=== PATIENT | male | born 1995 | race Caucasian/White ===

== ENCOUNTER 2019-10-31 10:17 | Emergency (ER) | payer BC ==
[2019-10-31 11:08] LABS: #Basophils 0.1 thou/uL (0.0-0.2); #Eosinphils 0.2 thou/uL (0.0-0.7); #Lymphocytes 3.2 thou/uL (1.20-3.40); #Monocytes 0.6 thou/uL (0.11-0.59); #Neutrophils 4.7 thou/uL (1.40-6.50); %Basophils 0.8 % (0.0-1.0); %Eosinophils 1.9 % (0.0-10.0); %Lymphocytes 36.8 % (21.0-51.0); %Monocytes 6.4 % (0.0-10.0); %Neutrophils 54.2 % (42.0-75.0); Hemoglobin 15.2 g/dL (14.0-18.0); Mean Corpuscular HGB CONC 35.2 g/dL (32.0-36.0); Mean Corpuscular Hemoglobin 29.9 pg (27.0-31.0); Mean Corpuscular Volume 84.8 fL (78.0-98.0); Mean Platelet Volume 8.6 fL (7.4-10.4); Platelet Count 273 thou/uL (130-400); RBC Distribution Width 11.4 % (11.5-14.5); Red Blood Cell (RBC) Count 5.09 mill/uL (4.70-6.10); White Blood Cell (WBC) Count 8.7 thou/uL (4.8-10.8)
[2019-10-31 11:26] LABS: ALT (SGPT) 28 U/L (8-55); AST (SGOT) 26 U/L (5-34); Alkaline Phosphatase 65 U/L (40-110); Anion Gap 12 mmol/L (10-20); BUN (Urea Nitrogen) 15 mg/dL (8.9-20.6); Bilirubin, Total 0.7 mg/dL (0.2-1.2); Calc. Creatinine Clearance 0 mL/min (70-130); Calcium 9.7 mg/dL (7.8-10.44); Carbon Dioxide 26 mmol/L (22-29); Chloride 104 mmol/L (98-107); Estimated GFR-MDRD 88; Globulin 2.6 g/dL (2.4-3.5); Glucose 117 mg/dL (70-105); Lipase 58 U/L (8-78); Potassium 3.4 mmol/L (3.5-5.1); Protein, Total 7.6 g/dL (6.0-8.3); Sodium 139 mmol/L (136-145)
[2019-10-31 11:42] LABS: Bacteria/HPF None Seen HPF (None Seen); Bilirubin Negative (Negative); Blood, Urine Negative (Negative); Clarity Turbid (Clear); Glucose, Urine (Dipstick) Normal (Negative); Leukocyte Negative Leu/uL (Negative); Nitrite Negative (Negative); Protein, Urine (Dipstick) 30 mg/dL (Neg-Trace); RBC/HPF 0-3 HPF (0-3); Squamous Epithelial None Seen HPF (0-3); Urobilinogen Normal mg/dL (Less than 2); WBC/HPF 0-3 HPF (0-3)
[2019-10-31 11:47] LABS: Sperm/HPF Rare HPF (None Seen)
--- NOTE | 2019-10-31 12:48 | ULT ---
RIGHT UPPER QUADRANT ABDOMINAL ULTRASOUND: HISTORY: Abdominal pain. TECHNIQUE: Multiplanar, kiser scale, and color Doppler images are obtained in a right upper quadrant abdominal ul trasound. FINDINGS: The liver is normal in echogenicity without focal lesions or intrahepatic ductal dilatation. There i s a nondependent echogenic structure within the gallbladder measuring 5 mm in size. This may repres ent adenomas or cholesterol polyp. No shadowing stones are seen in the gallbladder. There is no gal lbladder wall thickening or pericholecystic fluid. The common bile duct is normal measuring 2 mm. T he visualized portions of the pancreas are unremarkable. The right kidney is normal in echogenicity without hydronephrosis or calculus and measures 10.7 cm in length. IMPRESSION: Small gallbladder polyp. POS: [facility]
== END 2019-10-31 14:45 | disposition home or self-care (01) ==
LOC: ERS 10:17
DX: K21.9 Gastro-esophageal reflux disease without esophagitis (principal)
CPT/HCPCS: 36415; 76705; 80053; 81003; 81015; 83690; 85025; 93005